=== PATIENT | male | born 1960 | race Caucasian/White ===

== ENCOUNTER → 2023-06-01 06:33 | Day surgery (SDC) | payer OTHER, SELFPAY | LOC: GI 06:33 | PROVIDERS: ATTENDING PHYSICIAN Internal Medicine | DX: Z12.11 Encounter for screening for malignant neoplasm of colon (principal); K64.8 Other hemorrhoids; K57.30 Diverticulosis of large intestine without perforation or abscess without bleeding | CPT/HCPCS: G0121 ==

== ENCOUNTER 2024-03-14 22:31 | Inpatient (IN) | payer OTHER, SELFPAY ==
[2024-03-14] VITALS (14 sets, daily range): BP systolic 98–142; BP diastolic 71–96; BMI 22.4
[2024-03-14 17:01] LABS: % Basophils 0.5 % (0-2); % Eosinophils 0.5 % (0-6); % Immature Granulocytes 0.5 % (0-0.5); % Monocytes 6.9 % (1.7-9.3); % Neutrophils 84.6 % (42.2-75.2); Absolute Basophils 0.1 10^3/uL (0-0.2); Absolute Eosinophils 0.1 10^3/uL (0-0.7); Absolute Immature Granulocytes 0.1 10^3/uL (0-0.05); Absolute Lymphocytes 0.9 10^3/uL (1.2-3.4); Absolute Monocytes 0.9 10^3/uL (0.1-0.6); Absolute Neutrophils 10.9 10^3/uL (1.4-6.5); Hematocrit 40.2 % (39.0-52.0); Hemoglobin 13.8 g/dL (13.0-18.0); Mean Corp Hgb Conc. 34.3 g/dL (33.0-37.0); Mean Corpuscular Hgb 31.4 pg (27.0-31.0); Mean Corpuscular Volume 91.6 fL (80.0-94.0); Mean Platelet Volume 9.8 fL (7.4-10.4); Nucleated Red Blood Cells % 0 % (-); Platelet Count 277 10^3/uL (130-400); Red Blood Cell Count 4.39 10^6/uL (4.70-6.10); Red Cell Dist. Width 13.1 % (11.5-14.5); White Blood Cell Count 12.9 10^3/uL (4.8-10.8)
[2024-03-14 17:16] LABS: ALT (SGPT) 38 U/L (0-50); AST (SGOT) 58 U/L (17-59); Albumin 4.5 g/dl (3.5-5.0); Alkaline Phosphatase 86 U/L (38-126); Blood Urea Nitrogen 12 mg/dl (9-20); Calcium 9.5 mg/dl (8.4-10.2); Carbon Dioxide 29 mmol/L (22-30); Chloride 93 mmol/L (98-107); Glucose 138 mg/dl (70-99); Potassium 4.5 mmol/L (3.5-5.1); Sodium 132 mmol/L (135-145); Total Bilirubin 0.7 mg/dl (0.2-1.3); Total Protein 7.1 g/dl (6.3-8.2); eGFR > 60.00
[2024-03-14 17:28] LABS: Troponin I < 0.012 ng/ml
--- NOTE | 2024-03-14 18:42 | ED.GENMED ---
History of Present Illness
<GARCIA Mai - Last Filed: 03/14/24 20:53>
General
Chief Complaint: Chest Pain
Source: patient
Exam Limitations: none
Time Seen by Provider: 03/14/24 18:28
History of Present Illness
History of Present Illness:
This is a 63 year old male that comes in with c/o chest tightness. States that he was scraping snow as he used his skin carver last night. States that he started with this tightness in his chest and his shoulders hurt. States that it was a severe
pain. States that with Deep breathing he really has pain. States that he had a viral infection in February and he was given a Z-pack. States that he has tightness in his chest like he had then. States that he got better for a little bit then the
tightness started again. States that right now he feels like everything hurts. States that he was a little nauseated, pain with Deep breathing and Lightheaded. Denies any fever, chills, abd pain, vomiting, diarrhea, headache, urinary burning.
Past History
<GARCIA Mai - Last Filed: 03/14/24 20:53>
Past History
ED Past Medical History: Negative Asthma, HTN, Hypercholesterolemia or NIDDM
ED Past Surgical History: Appendectomy and Orthopedic (Right rotator cuff)
Social History
Tobacco: Former smoker
Alcohol: Daily (Beer 4-6 )
Personal:
Living: with family
Review of Systems
<GARCIA Mai - Last Filed: 03/14/24 20:53>
Review of Systems
All Other Systems: ROS reviewed and negative except as documented in HPI and ROS
Constitutional: Reports no symptoms; Denies fever or chills
EENT: Reports no symptoms
Respiratory: Reports trouble breathing (pain with deep breathing); Denies cough
Cardiac: Reports chest pain
ABD/GI: Reports nausea; Denies abdominal pain, vomiting or diarrhea
: Reports no symptoms; Denies dysuria, frequency or urgency
Musculoskeletal: Reports other (Bilateral shoulder pain and pain all over)
Skin: Reports no symptoms
Neurological: Reports other (Lightheaded); Denies dizzy or headache
Psychiatric: Reports no symptoms
Phy Exam
<GARCIA Mai - Last Filed: 03/14/24 20:53>
General Physical Exam
General Presentation: no apparent distress
General age: appears stated age
General Skin: warm and dry
General Habitus: normal
General Mental: alert
General Hydration: appears well hydrated
ENT Exam
ENT Exam: TM's normal, pharynx normal and neck supple
Eye Exam
Eye Exam: EOMI
Cardiovascular Exam
Cardiovascular Exam: regular rate/rhythm, no edema, no murmur and normal peripheral pulses
Pulmonary Exam
Pulmonary Exam: lungs clear, no respiratory distress, no rales, chest non tender, no crackles, no rhonchi, no wheezing and no cough
Gastrointestinal Exam
Gastrointestinal Exam: normal bowel sounds, non tender, soft, no organomegaly, no pulsatile mass and non distended
Musculoskeletal Exam
Musculoskeletal Exam: full ROM and no edema
Skin Exam
Skin Exam: normal color, warm/dry, no rash and no petechia
Psychiatric Exam
Psychiatric Exam: normal mood/affect
Scores
<GARCIA Mai - Last Filed: 03/14/24 20:53>
Heart Score for Chest Pain Patients
STEMI patient?: No
History: Moderately Suspicious
ECG: Normal
Age: >45 - <65 years
Risk Factors: No Risk Factors
Troponin: </= Normal Limit
Heart Score for Chest Pain Patients: 2
Heart Score Risk: 2.5% MACE over next 6 weeks
Course
<Francisca Darling, GARCIA - Last Filed: 03/14/24 20:53>
Orders/Labs/Results
Orders:
Orders
03/14/24 16:32
EKG [Electrocardiogram (*1)] Urgent
Reason for Study: Chest Pain
03/14/24 16:33
EKG- Treatment ONCE
03/14/24 16:43
CMP [Comprehensive Metabolic Panel] Urgent
Complete Blood Count/With Diff Urgent
Troponin I Urgent
03/14/24 18:38
CR Chest - 2 Views Urgent
Comment:
Reason For Exam: Pain with deep breathing, Chest pain
03/14/24 18:39
Electrocardiogram (*1) Urgent
Reason for Study: Chest Pain
Other Reason for Exam: Repeat with Troponin
EKG- Treatment ONCE
Aspirin Chewable [Low Strength Aspirin] 324 mg PO NOW STA
03/14/24 18:45
COVID-19 Antigen Urgent
Source: Nasal Swab
D-Dimer Urgent
03/14/24 19:20
CT Chest PE Study Urgent
Comment:
Reason For Exam: sob, pleuritic cp
03/14/24 19:21
Ketorolac [Toradol] 15 mg IV NOW STA
03/14/24 19:50
Troponin I Urgent
Abnormal Lab Results
03/14/24 03/14/24
16:43 18:45
WBC 12.9 H 10^3/uL
(4.8-10.8)
RBC 4.39 L 10^6/uL
(4.70-6.10)
MCH 31.4 H pg
(27.0-31.0)
Abs Immat Gran (auto) 0.1 H 10^3/uL
(0-0.05)
Absolute Neuts (auto) 10.9 H 10^3/uL
(1.4-6.5)
Absolute Lymphs (auto) 0.9 L 10^3/uL
(1.2-3.4)
Absolute Monos (auto) 0.9 H 10^3/uL
(0.1-0.6)
Neutrophils % 84.6 H %
(42.2-75.2)
Lymphocytes % 7.0 L %
(20.5-51.1)
D-Dimer 0.62 H ug/mlFEU
(0.00-0.50)
Sodium 132 L mmol/L
(135-145)
Chloride 93 L mmol/L
(98-107)
Glucose 138 H mg/dl
(70-99)
03/14/24 16:43
03/14/24 16:43
Leukocytosis, hyponatremia, Hypochloremia. Hyperglycemia. Troponin <0.012
D-dimer 0.62, Negative for COVID. Second Troponin <0.012
Vital Signs
Initial and Last Documented VS:
Initial Vital Signs
Temp Pulse Resp BP Pulse Ox
97.7 F 76 18 117/72 99
03/14/24 16:38 03/14/24 16:38 03/14/24 16:38 03/14/24 16:38 03/14/24 16:38
Last Documented Vital Signs
Temp Pulse Resp BP Pulse Ox
97.6 F 77 21 124/72 98
03/14/24 18:17 03/14/24 18:17 03/14/24 18:17 03/14/24 18:17 03/14/24 18:17
<Edward Becker MD - Last Filed: 03/14/24 20:44>
Orders/Labs/Results
Orders:
Orders
03/14/24 16:32
EKG [Electrocardiogram (*1)] Urgent
Reason for Study: Chest Pain
03/14/24 16:33
EKG- Treatment ONCE
03/14/24 16:43
CMP [Comprehensive Metabolic Panel] Urgent
Complete Blood Count/With Diff Urgent
Troponin I Urgent
03/14/24 18:38
CR Chest - 2 Views Urgent
Comment:
Reason For Exam: Pain with deep breathing, Chest pain
03/14/24 18:39
Electrocardiogram (*1) Urgent
Reason for Study: Chest Pain
Other Reason for Exam: Repeat with Troponin
EKG- Treatment ONCE
Aspirin Chewable [Low Strength Aspirin] 324 mg PO NOW STA
03/14/24 18:45
COVID-19 Antigen Urgent
Source: Nasal Swab
D-Dimer Urgent
03/14/24 19:20
CT Chest PE Study Urgent
Comment:
Reason For Exam: sob, pleuritic cp
03/14/24 19:21
Ketorolac [Toradol] 15 mg IV NOW STA
03/14/24 19:50
Troponin I Urgent
Abnormal Lab Results
03/14/24 03/14/24
16:43 18:45
WBC 12.9 H 10^3/uL
(4.8-10.8)
RBC 4.39 L 10^6/uL
(4.70-6.10)
MCH 31.4 H pg
(27.0-31.0)
Abs Immat Gran (auto) 0.1 H 10^3/uL
(0-0.05)
Absolute Neuts (auto) 10.9 H 10^3/uL
(1.4-6.5)
Absolute Lymphs (auto) 0.9 L 10^3/uL
(1.2-3.4)
Absolute Monos (auto) 0.9 H 10^3/uL
(0.1-0.6)
Neutrophils % 84.6 H %
(42.2-75.2)
Lymphocytes % 7.0 L %
(20.5-51.1)
D-Dimer 0.62 H ug/mlFEU
(0.00-0.50)
Sodium 132 L mmol/L
(135-145)
Chloride 93 L mmol/L
(98-107)
Glucose 138 H mg/dl
(70-99)
03/14/24 16:43
03/14/24 16:43
Vital Signs
Initial and Last Documented VS:
Initial Vital Signs
Temp Pulse Resp BP Pulse Ox
97.7 F 76 18 117/72 99
03/14/24 16:38 03/14/24 16:38 03/14/24 16:38 03/14/24 16:38 03/14/24 16:38
Last Documented Vital Signs
Temp Pulse Resp BP Pulse Ox
97.6 F 77 21 124/72 98
03/14/24 18:17 03/14/24 18:17 03/14/24 18:17 03/14/24 18:17 03/14/24 18:17
<GARCIA Mai - Last Filed: 03/14/24 20:53>
MDM/Problems Addressed
Differential Diagnosis Includes:
PE, Coronary syndrome, Musculoskeletal pain
MDM/Problems Addressed:
This is a 63 year old male that comes in with c/o chest pain and pain with deep breathing. States that in February he had a viral illness and was place on a Z-pack. States that he has tightness in his chest then. States that he got better and the the
tightness started to come back. States that today he was scraping snow and he started with chest tightness and pain in the shoulder. States that when he takes a deep breath he has pain.
Will check labs, Chest x-ray, D-dimer and get Second Troponin
Repeat ECG: rate 80, NSR, Left axis, Normal QRS, Negativ for ischemia.
Back into see patient. Explained that his CT is negative for PE but there is a small pericardial effusion. Patient also had an arrhythmia that was note on the monitor that looked like Atrial Vs SVT. Will admit patient. Hospitalist notified.
Chronic conditions affecting care:
NA
Acute Exacerbation and/or Progression of Chronic Illness:
NA
<GARCIA Mai - Last Filed: 03/14/24 20:53>
*Radiology
Radiology exam reviewed: radiology read reviewed (CT chest-Small pericardial effusion. Mild interstitial thickening and ground-glass opacity in the lower lobes in a nearly symmetric distribution. Diagnostic possibilities are (1) a combination of
dependent subsegmental atelectasis and scarring or (2) Mild interstitial and alveolar pulmonary edema. ) and all reviewed NAD by ED Provider (CT cont- MIld splenomegaly. Chest-MIld bilateral lynda hyperinflation suggesting chronic obstructive
pulmonary disease. (COPD). Mild scarring and subsegmental atelectasis in the left lower lobe. )
*Pulse Oximetry
Patient hypoxic: no
*EKG
Interpreted by ED Provider?: Yes
Heart Rate: 73
Rate: normal
Rhythm: sinus, PAC's and PVC's
[place]: left axis deviation
QRS Pattern: normal QRS
Ischemia: no ischemia
*Vinyl Dipper Interpretation
Rate: normal
Heart Rate: 83
Rhythm: sinus and PVC's
*Critical Care Note
Total Time (30-74mins, 75-104mins- exclusive of procedures): Not Applicable
ED Attending Note
<GARCIA Mai - Last Filed: 03/14/24 20:53>
-
Portions of this chart may have been created with voice recognition software.� Occasional wrong word or��sound alike� substitutions may have occurred due to the inherent limitations of voice recognition software.
<Edward Becker MD - Last Filed: 03/14/24 20:44>
ED Attending Note
Patient seen and examined by attending physician: Yes
ED Attending Note:
I have seen and evaluated the patient with a [id number] encounter. I have spoken to the advance practicer provider and involved in the medical history, the physical exam, medical decision making.
Evaluation and management service: agree unless noted differently below.
Results interpretation: agree unless noted differently below.
Focused HPI: 63-year-old male with no reported chronic medical issues presents to the ER for evaluation of chest pain. Patient reports symptoms started a little over an hour prior to arrival�he reports that he went outside to shovel the driveway
and started to have some pain. He describes a sharp/burning substernal pain that is constant but much worse with deep inspiration. He says he has some mild associated shortness of breath. He denies any nausea, vomiting, diaphoresis. He denies
any other complaints. He does note that he is just getting over a viral GI bug for which she was treated with azithromycin 2 weeks ago. He denies any personal or family history of cardiac issues. He did have recent travel to [place] he says it
was a 3 and half hour flight. Has not any swelling or pain in the legs.
Physical exam: Well-appearing not in distress. Vitals normal. Regular rate and rhythm on cardiac auscultation, no rubs gallops or murmurs appreciated. Lungs sound clear to auscultation bilaterally. No edema noted in the extremities. Extremities
are warm and well-perfused. Abdomen nontender. No chest wall tenderness
Medical Decision Makin-year-old male presents for evaluation of pleuritic chest pain started little over an hour prior to arrival. Vitals and exam as above. Will send off labs including a CBC and a CMP, troponins, D-dimer. Swab for COVID and
flu. Check chest x-ray. EKG shows sinus rhythm no STEMI. Reassess after the above.
Labs reviewed: CBC shows slight leukocytosis. CMP no clinically significant abnormalities. D-dimer slightly elevated�will send for a CT chest. Troponin undetectable. Chest x-ray no acute disease.
Repeat troponin undetectable. CT chest shows small pericardial effusion, groundglass opacities nearly symmetric distribution in the lower lobes could be subsegmental atelectasis versus mild interstitial pulmonary edema. Question whether symptoms
could be from pericarditis with recent viral illness and now pleuritic pain and pericardial effusion. He did have a short run of SVT/A-fib here and with continued chest pain despite NSAIDs will admit for continued evaluation and treatment.
Discharge Plan
Departure
Patient Disposition: Admit
Date of Disposition: 03/14/24
Time of Disposition: 20:50
Admit to: Telemetry
Presentation/result/management discussed w/ accepting MD/DO: Hospitalist
Patient with high blood pressure during this ER visit?: No
Condition: Good
Covid-19: Not Applicable
Discharge Problem:
Chest pain, Acute pericardial effusion, Atrial fib Vs SVT
Referrals:
UNKNOWN - PT DOES,NOT KNOW [Unknown Provider] -
Interventions
Interventions:
*Risk Screen - Suicide Last Done: 03/14/24 16:38
*General Assessment Last Done: 03/14/24 16:38
*Neglect/Abuse Screening Last Done: 03/14/24 18:17
ED- Fall Risk Assessment Last Done: 03/14/24 18:17
*ED COVID-19 Vaccine History Last Done: 03/14/24 16:38
ED- Cardiac Assessment Last Done: 03/14/24 18:17
Discharge Date and Time
Print Language: [place]
[2024-03-14] MEDS: LOW STRENGTH ASPIRIN 324 MG PO (18:46)
[2024-03-14 19:10] LABS: COVID-19 Antigen Negative (Negative)
[2024-03-14 19:16] LABS: D-Dimer 0.62 ug/mlFEU (0.00-0.50)
[2024-03-14] MEDS: TORADOL 15 MG IV (19:46)
[2024-03-14 20:25] LABS: Troponin I < 0.012 ng/ml
--- NOTE | 2024-03-14 21:02 | HPS.HSE ---
Family Physician
-
Family Physician: Thompson Mendez
Chief Complaint
-
chest tightness
History of Present Illness
Patient is a 63-year-old male with no significant past medical history who presented to [facility] ED for evaluation of chest tightness. Patient reports consistent chest tightness since the beginning of the month. He states he saw his primary
provider on Feb 25 who stated he had a virus and prescribed him a z-pack and albuterol inhaler. He states he felt better at first and then the chest tightness returned after he finished the z-pack, he states he never used albuterol inhaler. He
reports that last night he utilized snowblower to clear driveway without worsening symptoms. He reported that today he went out to scrape ice from cars and driveway and when he was completed he had chest tightness that radiated to his arms. He
reports similar tightness in chest with deep breaths. Patient denies any palpitations, dizziness, shortness of breath, nausea, vomiting, constipation, diarrhea or urinary symptoms.
Medical History
Past Medical History
Past Medical History: Reports None
Past Surgical History: Reports Other
Additional Past Surgical History:
appendectomy
right rotator cuff
Social History
Tobacco: Non-smoker
Alcohol: Daily (4-6 beers)
Drug: None
Personal:
Living: With Family
Employment: Employed
Family History
Family History: Not pertinent
Allergies / Home Medications
Allergies reflects when Allergies were last updated in [email or web address].
Home Medications with original date entered in [email or web address]
Allergy/Medication List:
Allergies
Allergy/AdvReac Type Severity Reaction Status Date / Time
Penicillins Allergy Unknown Verified 03/14/24 16:40
Home Medications
albuterol sulfate 90 mcg/actuation aerosol inhaler 2 puff inhalation R Q6HPRN PRN sob 03/14/24
biotin 1 mg tablet 1 mg PO DAILY 03/14/24
ibuprofen 200 mg tablet 600 mg PO Q6HPRN PRN mild pain 03/14/24
Review of Systems
-
History Source: Patient
Constitutional: Reports No Symptoms
EENT: Reports No Symptoms
Respiratory: Reports No Symptoms
Cardiac: Reports Chest Pain (described as tightness that radiated to shoulders today )
Abdomen/GI: Reports No Symptoms
: Reports No Symptoms
Musculoskeletal: Reports No Symptoms
Skin: Reports No Symptoms
Neurological: Reports No Symptoms
Endocrine: Reports No Symptoms
Hematologic/Lymphatic: Reports No Symptoms
Psych: Reports No Symptoms
Physical Exam
Vital Signs
Vital Signs
Temp Pulse Resp BP Pulse Ox
97.6 F 77 21 124/72 98
03/14/24 18:17 03/14/24 18:17 03/14/24 18:17 03/14/24 18:17 03/14/24 18:17
Physical Exam
General: Well Developed, Well Nourished, No Apparent Distress, Comfortable and Conversant
HEENT: NormoCephalic, Moist mucous membranes, Atraumatic, [place] Conjunctivae, Nose Appears Normal and Ears Appear Normal
Respiratory: Clear and Non Labored Respirations
Cardiac: S1/S2 and Regular Rhythm; No Murmur, Rub or Gallop
GI: Soft, Non Tender, Non Distended and Normal Bowel Sounds; No Organomegaly
Rectal: Deferred by Provider
Genito-urinary: Deferred by me
Musculoskeletal: No Clubbing, No Cyanosis and No Edema
Skin: Warm and IV/Catheter Site; No Rash
Neuro: Awake, Alert, AO x 3 and Nonfocal/grossly intact
Psych: Calm and Intact Judgment/Insight
Laboratory Results
-
03/14/24 16:43
03/14/24 16:43
Laboratory Results
Total Bilirubin 0.7 mg/dl (0.2-1.3) 03/14/24 16:43
AST 58 U/L (17-59) 03/14/24 16:43
ALT 38 U/L (0-50) 03/14/24 16:43
Alkaline Phosphatase 86 U/L (38-126) 03/14/24 16:43
Troponin I < 0.012 ng/ml 03/14/24 19:50
Data Reviewed
-
Diagnostic Radiology: Report Reviewed by me (CXR: 1. Mild bilateral lung hyperinflation suggesting chronic obstructive pulmonary disease (COPD). 2. Mild scarring and subsegmental atelectasis in the left lower lobe. )
CT Scan: Report Reviewed by me (Chest: 1. SMALL PERICARDIAL EFFUSION. 2. Mild interstitial thickening and ground-glass opacity in the lower lobes in a nearly symmetric distribution. Diagnostic possibilities are (1) a combination of dependent
subsegmental atelectasis and scarring or (2) mild interstitial and alveolar pulmonary )
Lab Data: Labs Reviewed by me (Trop <0.012)
Impression/Plan
-
IMPRESSION/PLAN:
#Chest pain
EKG: NORMAL SINUS RHYTHM
LEFT AXIS DEVIATION
NONSPECIFIC ST ABNORMALITY
ABNORMAL ECG
CXR: 1. Mild bilateral lung hyperinflation suggesting chronic obstructive pulmonary disease (COPD).
2. Mild scarring and subsegmental atelectasis in the left lower lobe.
Chest CT: 1. SMALL PERICARDIAL EFFUSION.
2. Mild interstitial thickening and ground-glass opacity in the lower lobes in a nearly symmetric distribution. Diagnostic possibilities are (1) a combination of dependent subsegmental atelectasis and scarring or (2) mild
interstitial and
alveolar pulmonary edema.
3. Mild splenomegaly.
Trop <0.012, 0.012
- Admit to IVU
- Consult cardiology
- trend troponin
- ECHO in the morning
#new onset a-fib RVR
- heparin gtt
- diltiazem gtt
Code Status: Full Code
DVT Prophylaxis: Lovenox Sq
[2024-03-14] MEDS: CARDIZEM 20 MG IV (21:58)
[2024-03-14] MEDS: FLUSH (NSS) 1 FLUSH IV (22:00)
[2024-03-14] MEDS: CARDIZEM 125 IV (22:06)
--- NOTE | 2024-03-14 22:43 | W.PN.UPDATE ---
Update Note
Progress Note Update
Attending addendum
Patient seen independently
63-year-old man with no significant past medical history who presented to [facility] ED for evaluation of chest tightness. He has had Consistent chest tightness since the beginning of the month. PCP on Feb 25 who stated he had a virus and gave him a
z-pack and albuterol inhaler. He felt better at first but the chest tightness returned after he finished the z-pack, Last night he utilized snowblower to clear driveway without worsening symptoms. He reported that today after scraping ice from cars
and driveway he had chest tightness that radiated to his arms. He reports similar tightness in chest with deep breaths. Patient denies any palpitations, dizziness, shortness of breath, nausea, vomiting, constipation, diarrhea or urinary symptoms.
Pain is worse if he leans forward. CT in the ED showed:
1. SMALL PERICARDIAL EFFUSION.
2. Mild interstitial thickening and ground-glass opacity in the lower lobes in a nearly symmetric distribution. Diagnostic possibilities are (1) a combination of dependent subsegmental atelectasis and scarring or (2) mild interstitial and alveolar
pulmonary edema.
3. Mild splenomegaly.
During my exam he developed afib with a rate of 150-170. He was started on diltiazem gtt and heparin gtt.
Physical Exam
General: Well Developed, Well Nourished, No Apparent Distress, Comfortable and Conversant
HEENT: NormoCephalic, Moist mucous membranes, Atraumatic, [place] Conjunctivae, Nose Appears Normal and Ears Appear Normal
Respiratory: Clear and Non Labored Respirations
Cardiac: S1/S2 and Regular Rhythm; No Murmur, Rub or Gallop
GI: Soft, Non Tender, Non Distended and Normal Bowel Sounds; No Organomegaly
Psych: Calm and Intact Judgment/Insight
Impression/Plan
1. Chest pain, positional, probable viral pericarditis, now complicated by new afib.
Trop <0.012, 0.012
- Admit to IVU - on heparin gtt and dilt gtt
- Consult cardiology
- trend troponin
- ECHO in the morning
Code Status: Full Code
DVT Prophylaxis: heparin gtt
[2024-03-14] MEDS: HEPARIN 4000 UNITS IV (22:52)
[2024-03-14] MEDS: HEPARIN 25000 UNITS/250 ML IV (22:53)
[2024-03-15] VITALS (14 sets, daily range): BP systolic 112–126; BP diastolic 70–88; BMI 21.6
[2024-03-15 01:24] LABS: Troponin I < 0.012 ng/ml
[2024-03-15] MEDS: TYLENOL 650 MG PO ×2 (01:37→08:02)
--- NOTE | 2024-03-15 04:00 | PTCARENOTE ---
Pt received as admit from ED. Admission assessment completed and pt oriented to room. SR on tele since admission to unit with HR 60s-80s. Pt with complaints of 'chest tightness that gets worse with deep breath' which is unchanged since he has
gotten to the hospital. Cardizem gtt currently infusing at 5mg/hr and heparin gtt infusing at 1100units/hr. Plan of care discussed and pt verbalizes understanding. Can make needs known. Call rivera within reach.
[2024-03-15 05:07] LABS: Hematocrit 36.5 % (39.0-52.0); Hemoglobin 12.8 g/dL (13.0-18.0); Mean Corp Hgb Conc. 35.1 g/dL (33.0-37.0); Mean Corpuscular Hgb 31.4 pg (27.0-31.0); Mean Corpuscular Volume 89.7 fL (80.0-94.0); Mean Platelet Volume 10.2 fL (7.4-10.4); Platelet Count 203 10^3/uL (130-400); Red Blood Cell Count 4.07 10^6/uL (4.70-6.10); Red Cell Dist. Width 12.8 % (11.5-14.5); White Blood Cell Count 10.2 10^3/uL (4.8-10.8)
[2024-03-15 05:17] LABS: APTT 118.8 Sec (23.4-35.0)
[2024-03-15 05:30] LABS: ALT (SGPT) 29 U/L (0-50); AST (SGOT) 41 U/L (17-59); Albumin 3.9 g/dl (3.5-5.0); Alkaline Phosphatase 68 U/L (38-126); Blood Urea Nitrogen 12 mg/dl (9-20); Calcium 9.7 mg/dl (8.4-10.2); Carbon Dioxide 26 mmol/L (22-30); Chloride 93 mmol/L (98-107); Estimated Creatinine Clearance 118 ml/min; Glucose 111 mg/dl (70-99); HDL Cholesterol 86 mg/dl; LDL Cholesterol, Calculated 35 mg/dl; Potassium 4.6 mmol/L (3.5-5.1); Sodium 128 mmol/L (135-145); Total Bilirubin 2.1 mg/dl (0.2-1.3); Total Cholesterol 131 mg/dl (50-199); Total Protein 6.4 g/dl (6.3-8.2); Triglyceride 52 mg/dl (10-149); Very Low Density Lipoprotein 10 mg/dl (0-30); eGFR > 60.00
--- NOTE | 2024-03-15 07:37 | CON.CAR ---
Addendum entered and electronically signed by Troy Golden MD 03/15/24 15:37:
I saw and examined the patient on morning rounds.
The Emulsion Operator's note was reviewed and I agree with the note.
Comment: Briefly, 63-year-old man presenting for evaluation of chest discomfort.
Pain seems to be somewhat atypical by his description. Has not been clearly exertional. Seems worse with deep inspiration.
Troponin was undetectable x 3
ECG was not overtly ischemic
Small pericardial effusion seen on CT chest and thought to be trivial on transthoracic echocardiogram.
Overall seems most consistent with pericarditis
Recommend ibuprofen 800 mg 3 times daily x 2 weeks
Colchicine 0.6 mg daily x 3 months
We will arrange for outpatient cardiology follow-up and can discuss ischemic evaluation at that time
Of note, patient was also identified as having a brief episode of atrial fibrillation on telemetry here and spontaneously converted back to sinus rhythm
Patient reports that he was asymptomatic during this episode
Start low-dose beta-jim for rate control
Chads 2 VASc score of 0, reviewed risk/benefit of oral anticoagulation with patient and recommended we hold off on anticoagulation at this time
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
Stable for discharge from my perspective
We will arrange outpatient cardiology follow-up
Original Note:
Consultation
Consultation Request
Date/Time Consultation Performed: 03/15/24
Requesting Provider: Dr. Morillo
Performing Provider: Parisa Oneill PA-C for Dr. Golden
Reason for Consultation: CP, afib
Medical History
-
Chief Complaint: CP
History of Present Illness:
Patient is a 63 yo M without significant PMH who presented to with chest pain. He reports in February he had a upper respiratory infection. In the setting of this he developed chest tightness. He was prescribed a Z-Favio, however upon finishing
it states that his symptoms did not significantly improve. He reports since then he has had intermittent tightness across his chest, as well as pleuritic pain worse with taking a deep breath in. He reports pain across his shoulders in addition.
Denies positional component to pain to his knowledge. He denies recent fevers or chills as well as cough. 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 He then reports last night he was cleaning off the cars which he felt was
minimal exertion. Upon coming in from doing so, felt significant worsening of symptoms and came to ER for evaluation. While in ER was noted to be in atrial fibrillation which is new diagnosis for patient. He was started on IV heparin and IV
Cardizem and spontaneously converted to sinus rhythm at approximately 12:30 AM. Currently without chest discomfort. Troponins negative x 2. D-dimer was mildly elevated at 0.[address] negative for PE however did show small
pericardial effusion. States he drinks 4-6 beers a day
PMH:
Daily alcohol use
History of right rotator cuff repair in 2020
History of appendectomy at age 5
Past Medical History
Past Medical History: Other (in HPI)
Social History
Tobacco: Non-Smoker
Alcohol: Daily (4-6 beers)
Personal:
Living: With Family
Employment: Employed
Family History
Family History: CAD (in father)
Allergies / Home Medications
Allergy/AdvReac Type Severity Reaction Status Date / Time
Penicillins Allergy Unknown Verified 03/14/24 16:40
�Medication �Instructions �Recorded �Confirmed �Type
albuterol sulfate 90 mcg/actuation 2 puff inhalation R Q6HPRN PRN sob 03/14/24 03/14/24 History
aerosol inhaler
biotin 1 mg tablet 1 mg PO DAILY 03/14/24 03/14/24 History
ibuprofen 200 mg tablet 600 mg PO Q6HPRN PRN mild pain 03/14/24 03/14/24 History
Review of Systems
-
History Source: Patient
All other systems: Negative unless noted
Physical Exam
Vital Signs
Temp Pulse Resp BP Pulse Ox
98.2 F 63 18 121/80 98
03/15/24 04:31 03/15/24 04:15 03/15/24 04:31 03/15/24 04:15 03/15/24 04:31
Lab Results
03/15/24 04:39
03/15/24 04:39
Troponin I < 0.012 ng/ml 03/15/24 00:43
Physical Exam
General: No Apparent Distress and Comfortable
HEENT: Normocephalic, Anicteric and Moist Mucous Membranes
Respiratory: Clear and Non Labored Respirations
Cardiac: S1/S2 and Regular Rhythm
GI: Soft, Non Tender, Non Distended and Normal Bowel Sounds
Musculoskeletal: No Clubbing, No Cyanosis and No Edema
Skin: Warm and Dry
Neuro: AO x 3
Impression / Plan
-
Primary Outsole Scheduler: none prior to admission
Assessment:
Presentation with CP
Small pericardial effusion by chest CT, concern for acute pericarditis
PAF, new diagnosis, spontaneously converted to SR
Negative trops x2
PVCs
Elevated ddimer
Hyponatremia
Recent URI
COPD by CXR
Daily alcohol use
History of right rotator cuff repair in 2020
History of appendectomy at age 5
FH of CAD (angina in father)
ECHO 03/15/24: pending
Plan:
-Patient presented with chest discomfort with pleuritic component in setting of recent URI. Troponins negative x 2. Chest CT negative for PE however did show small pericardial effusion. EKG also with mild diffuse ST elevation by my review.
Concern for acute pericarditis.
-Consider initiation of treatment for pericarditis with NSAIDs and colchicine.
-Echo pending
-Also had episode of paroxysmal atrial fibrillation, new diagnosis. Patient was started on IV Cardizem and IV heparin and spontaneously converted to sinus rhythm around 12:30 AM. He remains in sinus rhythm at this time without recurrence.
-Will stop IV Cardizem and place on oral Cardizem
-[id number] score of 0. in setting of possible pericardial effusion and treatment for pericarditis with NSAIDS, would weigh need for OAC. currently on IV heparin.
-Check TSH
-Discussed EtOH cessation
-Workup of hyponatremia per primary service, suspected SIADH.
-Will arrange outpatient cardiac follow-up. Would consider for outpatient cardiac monitoring to establish burden/duration of anticoagulation, as well as outpatient stress testing once recovered
Data Reviewed
-
EKG: Tracing Personally Visualized and interpreted
Radiology: Report Reviewed by me
CT Scan: Report Reviewed by me
Labs: Labs Reviewed by me
Old Records: Reviewed
--- NOTE | 2024-03-15 07:50 | PTCARENOTE ---
Assumed care of pt from prev nsg shift; Pt AAOx3 w/no c/o SOB. Pt does report 3-4/10 upper chest pain w/inspiration. PRN PO Tylenol administered as ordered. Pt w/VS stable w/HR in the 60's & BP 126/79 this AM. Pt is 0 on MSAS. Pt w/IV Heparin & IV
Cardizem infusing as ordered through patent IV lines. Pt is SR on telemetry monitoring. Pt w/call rivera within reach & plan of care ongoing.
--- NOTE | 2024-03-15 07:57 | W.PN.HOSP.TC ---
Today's Communication/Plan
-
TTE
follow up further cardiology recommendations
Assessment / Plan
Assessment / Plan
63-year-old man with no significant past medical history who presented to [facility] ED for evaluation of chest tightness. He was recently prescribed Azithromycin by PCP with temporary relief of symptoms. Last night while clearing off cars and
driveway he developed chest tightness worse with deep breaths.
EKG: NSR with nonspecific t-wave abnormalities
CXR: 1. Mild bilateral lung hyperinflation suggesting chronic obstructive pulmonary disease (COPD).
2. Mild scarring and subsegmental atelectasis in the left lower lobe.
Chest CT: 1. SMALL PERICARDIAL EFFUSION.
2. Mild interstitial thickening and ground-glass opacity in the lower lobes in a nearly symmetric distribution. Diagnostic possibilities are (1) a combination of dependent subsegmental atelectasis and scarring or (2) mild
interstitial and
alveolar pulmonary edema.
3. Mild splenomegaly.
Pleuritic chest pain
Small Pericardial Effusion
Concern for viral pericarditis
- admitted to IVU
- Troponin negative x 3
- TTE ordered
- will discuss starting colchicine/motrin with cardiology
New onset atrial fibrillation with RVR in setting of above; has been in sinus overnight here and currently in sinus - brief SVT seen on onitor
- heparin gtt
- diltiazem gtt - stop as now in sinus
Hyponatremia
-suspect SIADH
-fluid restrict for now
-follow up urine studies
Alcohol Use
-started on MSAS
-check electrolytes
GI PPx - start Protonix with drinking hx
Code Status: Full Code
DVT Prophylaxis: heparin gtt
51 minutes spent on patient care
Anticipated Discharge: 24 - 48 hours
Subjective/Interval History
-
Date of Service: March 15, 2024
Objective Data
-
Labs:
Laboratory Results
03/14/24 03/15/24 03/15/24
22:26 04:39 11:30
WBC 10.2
Hgb 12.8 L
Hct 36.5 L
Plt Count 203 D
APTT 38.0 H 118.8 H Pending
Sodium 128 L
Potassium 4.6
Chloride 93 L
Carbon Dioxide 26
BUN 12
Creatinine 0.7
Glucose 111 H
Calcium 9.7
Total Bilirubin 2.1 H D
AST 41
ALT 29
Alkaline Phosphatase 68
Vital Signs:
Vital Signs
Temp Pulse Resp BP Pulse Ox
98.2 F 63 18 121/80 98
03/15/24 04:31 03/15/24 04:15 03/15/24 04:31 03/15/24 04:15 03/15/24 04:31
I&O
03/14/24 03/15/24 03/16/24
06:59 06:59 06:59
Output Total 250 / 250
Balance -250 / -250
[2024-03-15] MEDS: FOLVITE 1 MG PO (08:02)
[2024-03-15] MEDS: THIAMINE INJECTION 200 MG IV ×2 (08:02→20:19)
[2024-03-15] MEDS: FLUSH (NSS) 2 FLUSH IV (08:03)
[2024-03-15 09:04] LABS: Glycohemoglobin (HgbA1c) 5.3 % (4.0-5.6)
[2024-03-15] MEDS: PROTONIX 40 MG PO (10:07)
[2024-03-15] MEDS: TOPROL XL 25 MG PO (10:07)
[2024-03-15 10:22] LABS: Magnesium 1.6 mg/dl (1.6-2.3); Phosphorus 4.1 mg/dl (2.5-4.5)
[2024-03-15 10:47] LABS: NT-proBNP 417 pg/ml
[2024-03-15] MEDS: COLCHICINE 0.6 MG PO (10:59)
[2024-03-15 11:11] LABS: Erythrocyte Sed Rate 12 mm/hour (0-20)
[2024-03-15 11:12] LABS: Urine Sodium 14 mmol/L (30-90)
[2024-03-15 11:26] LABS: Osmolality Urine 406 mOsm/kg (300-900)
--- NOTE | 2024-03-15 14:42 | W.DS.TRANS ---
DC Summary - [facility]
-
Discharge Instructions:
Discharge Diagnosis/Procedures Acute Pericarditis
Diet Restrict fluids to 48 oz
Activity As tolerated
Driving Restrictions As prior to admission
Bathing Restrictions None
Blood Work BMP in 2-3 days to monitor sodium levels
Instructions:
Stand-Alone Forms:
Changes to Home Medications: Yes
Discharge Medications:
DC Medications w/original date entered in [employer]
albuterol sulfate 90 mcg/actuation aerosol inhaler 2 puff inhalation R Q6HPRN PRN sob 03/14/24
biotin 1 mg tablet 1 mg PO DAILY Supplement 03/14/24
colchicine 0.6 mg tablet 0.6 mg PO DAILY #90 tabs 03/15/24
folic acid 1 mg tablet 1 mg PO DAILY #30 tabs 03/15/24
ibuprofen 800 mg tablet 800 mg PO TID #42 tabs 03/15/24
metoprolol succinate 25 mg tablet,extended release 24 hr 25 mg PO DAILY #30 tabs 03/15/24
pantoprazole 40 mg tablet,delayed release 40 mg PO DAILY #30 tabs 03/15/24
thiamine HCl (vitamin B1) 100 mg tablet 100 mg PO DAILY #30 tabs 03/15/24
Home Medication Changes
You are prescribed 3 months of colchicine 0.6mg daily
Take Motrin 800mg 3x/day x 2 weeks
Take Protonix to help protect your stomach while you are on Motrin
You are newly started on Metoprolol to help control heart rates if you revert back to afib
You are prescribed vitamins thiamine/folate
Pending Results: No
[2024-03-15 15:48] LABS: Sodium 127 mmol/L (135-145)
[2024-03-15] MEDS: NSS 1000 IV (16:26)
[2024-03-15] MEDS: FLUSH (NSS) 1 FLUSH IV (16:27)
[2024-03-15] MEDS: MOTRIN 800 MG PO ×2 (16:30→22:02)
--- NOTE | 2024-03-15 22:20 | PTCARENOTE ---
Pt remains in NSR with HR 60s-70s. Denies CP and SOB. NS currently infusing at 70ml/hr. Pt on MSAS per alcohol withdraw protocol, currently 0. Ambulating independently in room without difficulty. Plan of care discussed and pt verbalizes
understanding and hoping to be discharged tomorrow. Can make needs known. Call rivera within reach.
--- NOTE | 2024-03-16 02:08 | DOWNTIME ---
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 Downtime documentation of patient's care, including medication administrations, has been reconciled in the electronic record per guidelines. Refer to the
patient's paper chart under the miscellaneous tab to see printed paper medication records and downtime forms.
[2024-03-16 03:12] VITALS: BP 116/74
--- NOTE | 2024-03-16 03:33 | PTCARENOTE ---
Pt went into Afib in the 140s for a minute with a 4 beat run of VT. Pt asymptomatic during episode, resting in bed at the time. Pt spontaneously converted back to NSR with HR in the 60s. Labs drawn and sent. Pt with no complaints at this time.
Plan of care ongoing.
[2024-03-16 03:39] LABS: Hematocrit 35.4 % (39.0-52.0); Hemoglobin 12.4 g/dL (13.0-18.0); Mean Corpuscular Hgb 31.6 pg (27.0-31.0); Mean Corpuscular Volume 90.1 fL (80.0-94.0); Mean Platelet Volume 10.3 fL (7.4-10.4); Platelet Count 195 10^3/uL (130-400); Red Blood Cell Count 3.93 10^6/uL (4.70-6.10); Red Cell Dist. Width 13.1 % (11.5-14.5); White Blood Cell Count 7.2 10^3/uL (4.8-10.8)
[2024-03-16 04:03] LABS: Blood Urea Nitrogen 12 mg/dl (9-20); Calcium 8.8 mg/dl (8.4-10.2); Carbon Dioxide 24 mmol/L (22-30); Chloride 100 mmol/L (98-107); Estimated Creatinine Clearance 103 ml/min; Glucose 115 mg/dl (70-99); Potassium 4.3 mmol/L (3.5-5.1); Sodium 132 mmol/L (135-145); eGFR > 60.00
[2024-03-16] MEDS: NSS 1000 IV (06:28)
--- NOTE | 2024-03-16 07:30 | W.PN.HOSP.TC ---
Today's Communication/Plan
-
OK for DC
Assessment / Plan
Assessment / Plan
63-year-old man with no significant past medical history who presented to [facility] ED for evaluation of chest tightness. He was recently prescribed Azithromycin by PCP with temporary relief of symptoms. Last night while clearing off cars and
driveway he developed chest tightness worse with deep breaths.
EKG: NSR with nonspecific t-wave abnormalities
CXR: 1. Mild bilateral lung hyperinflation suggesting chronic obstructive pulmonary disease (COPD).
2. Mild scarring and subsegmental atelectasis in the left lower lobe.
Chest CT: 1. SMALL PERICARDIAL EFFUSION.
2. Mild interstitial thickening and ground-glass opacity in the lower lobes in a nearly symmetric distribution. Diagnostic possibilities are (1) a combination of dependent subsegmental atelectasis and scarring or (2) mild
interstitial and
alveolar pulmonary edema.
3. Mild splenomegaly.
Pleuritic chest pain
Small Pericardial Effusion
Concern for viral pericarditis
- admitted to IVU
- Troponin negative x 3
- TTE ordered
- continue motrin TID x 2 weeks; colchicine daily x 3 months
New onset atrial fibrillation with RVR in setting of above; has been in sinus overnight here and currently in sinus - brief SVT seen on onitor
-CHADS2-Vasc score = 0
-no need for AC
Hyponatremia
-urine sodium low
-Na improved with IVF - OK for DC
Alcohol Use
-started on MSAS
-check electrolytes
GI PPx - start Protonix with drinking hx
Code Status: Full Code
DVT Prophylaxis: heparin gtt
51 minutes spent on patient care
Anticipated Discharge: Today
Subjective/Interval History
-
Date of Service: March 16, 2024
feeling well
feels ready to go home
mild pleuritic chest pain
Objective Data
-
Labs:
Laboratory Results
03/16/24
03:11
WBC 7.2
Hgb 12.4 L
Hct 35.4 L
Plt Count 195
Sodium 132 L
Potassium 4.3
Chloride 100
Carbon Dioxide 24
BUN 12
Creatinine 0.8
Glucose 115 H
Calcium 8.8
Vital Signs:
Vital Signs
Temp Pulse Resp BP Pulse Ox
98.3 F 62 16 116/74 96
03/16/24 03:14 03/16/24 03:12 03/16/24 03:14 03/16/24 03:12 03/16/24 03:14
I&O
03/15/24 03/16/24 03/17/24
06:59 06:59 06:59
Intake Total 840 / 840
Output Total 250 / 250
Balance -250 / -250 840 / 840
Review of Systems
-
History Source: Patient
All other systems: Reviewed and negative
Physical Exam
-
General: No Apparent Distress
HEENT: PERRLA
Respiratory: Clear to Auscultation; Negative Wheezes
Cardiac: Regular Rhythm and S1/S2
GI: Soft and Nontender
Musculoskeletal: No Edema
Skin: Warm and Dry; Negative Rash
Neuro: AO x 3
Psych: Calm
Data Reviewed
-
Diagnostic Radiology: Report Reviewed by me
Labs: Labs Reviewed by me
[2024-03-16 07:52] VITALS: BP 129/79
[2024-03-16] MEDS: COLCHICINE 0.6 MG PO (07:53)
[2024-03-16] MEDS: TOPROL XL 25 MG PO (07:53)
[2024-03-16] MEDS: MOTRIN 800 MG PO (07:53)
[2024-03-16] MEDS: PROTONIX 40 MG PO (07:53)
[2024-03-16] MEDS: THIAMINE INJECTION IV (07:53)
[2024-03-16] MEDS: FOLVITE PO (07:53)
--- NOTE | 2024-03-16 09:38 | CM ---
CM following for DC planning needs.
CM had met with patient on 03/14 to complete initial assessment.
Pt. shared that he resides in a private, 2 story home w/ 1 [address] w/ spouse. Pt. is functionally indep. at baseline w/ ADLs, mobility.
DC plan is for home, no needs.
--- NOTE | 2024-03-16 10:03 | PTCARENOTE ---
Pt AOx3,no complaints of pain or discomfort. HR up to 140s, pt asymptomatic, Dr Cho aware. Plan for discharge today. VSS, SR on tele monitor. Call rivera within reach.
--- NOTE | 2024-03-16 15:03 | W.DCSUMMARY ---
Discharge Summary
Discharge Data
Date of Admission: 03/14/24
Date of Discharge: 03/16/24
-
Pending Results: No
Hospital Course
Discharging Physician : Dr. Roxy Cho
Disposition : Home
Primary care physician : Dr. Thompson Mendez
Principal Discharge diagnosis : Acute Pericarditis, Hyponatremia
Hospital Course :
Mr. Mark Mendez is a 63 yo man with no significant past medical history who presented to [facility] ED for evaluation of chest tightness. He was recently prescribed Azithromycin by PCP with temporary relief of symptoms. Last night while clearing
off cars and driveway he developed chest tightness worse with deep breaths.
Triage vitals stable. Labs with WBC 12.9, normal renal function. CXR with e/o COPD. Chest CT with small pericardial effusion. Patient was admitted to medicine with cardiology consulting. Troponin negative x 3. TTE obtained showing trace
effusion. He was started on Motrin 800mg PO TID and Colchicine 0.6mg PO QD for treatment of acute pericarditis.
Brief periods of afib seen on telemetry. [id number] score 0 and decision made to hold off on AC. Plan is for outpatient monitor to assess burden.
He is prescribed Protonix for GI protection and educated on importance of alcohol cessation.
Patient was hyponatremic HD 1 2/2 dehydration, Na improved with IVF to 132 prior to discharge.
Time spent on discharge was 35 minutes.
Important imaging findings :
CXR: 1. Mild bilateral lung hyperinflation suggesting chronic obstructive pulmonary disease (COPD).
2. Mild scarring and subsegmental atelectasis in the left lower lobe.
Chest CT: 1. SMALL PERICARDIAL EFFUSION.
2. Mild interstitial thickening and ground-glass opacity in the lower lobes in a nearly symmetric distribution. Diagnostic possibilities are (1) a combination of dependent subsegmental atelectasis and scarring or (2) mild
interstitial and
alveolar pulmonary edema.
3. Mild splenomegaly.
TTE
CONCLUSIONS
Top normal left ventricular size, wall thickness and systolic function. No
regional wall motion abnormalities are seen. LV ejection fraction is 55-60% by
Lewis's method of discs. Normal diastolic function.
Mildly dilated aortic root. Sinus of Valsalva measures 3.8 cm. The aortic arch
is normal in caliber.
Indications:
CHEST PAIN
Procedure findings :
Discharge Plan
-
Patient Disposition: Home (Routine Discharge)
Discharge Diagnosis/Procedures: Acute Pericarditis
Diet: Restrict fluids to 48 oz
Activity: As tolerated
Driving Restrictions: As prior to admission
Bathing Restrictions: None
Activity Restrictions/Additional Instructions:
Please continue motrin 800mg three times daily for 2 weeks. Please continue colchicine 0.6mg daily for 3 months.
Referrals:
Orly Hernandes PA-C [Specified Professional Personl] - 03/29/24 10:20 am (You have a cardiology follow-up appointment at the [place] office. Please call with questions)
Thompson Mendez MD [Family Provider] - in less than 1 week
Additional Discharge Medication Instructions: You are prescribed 3 months of colchicine 0.6mg daily
Take Motrin 800mg 3x/day x 2 weeks - take through 03/28/24
Take Protonix to help protect your stomach while you are on Motrin
You are newly started on Metoprolol to help control heart rates if you revert back to afib
You are prescribed vitamins thiamine/folate
Prescriptions:
New
thiamine HCl (vitamin B1) 100 mg Tablet
100 mg PO DAILY Qty: 30 0RF
folic acid 1 mg Tablet
1 mg PO DAILY Qty: 30 0RF
ibuprofen 800 mg Tablet
800 mg PO TID Qty: 42 0RF
pantoprazole 40 mg Tablet,Delayed Release (Dr/Ec)
40 mg PO DAILY Qty: 30 0RF
metoprolol succinate 25 mg Tablet Extended Release 24 Hr
25 mg PO DAILY Qty: 30 0RF
colchicine 0.6 mg Tablet
0.6 mg PO DAILY Qty: 90 0RF
Continued
albuterol sulfate 90 mcg/actuation Hfa Aerosol Inhaler
2 puff INHALATION R Q6HPRN PRN (Reason: sob)
biotin 1 mg Tablet
1 mg PO DAILY
Discontinued
ibuprofen 200 mg Tablet
600 mg PO Q6HPRN PRN (Reason: mild pain)
Discharge Orders:
Discharge Patient (As Directed); Ordered 03/16/24
Ordered By: Roxy Cho
Care Plan Goals
Care Plan Goals:
Problem: Readiness for enhanced knowledge related to diagnosis and treatment plan
Goal: Understand your diagnosis and treatment plan needs, including medications if applicable.
Instructions: Know your diagnosis, underlying causes and treatment plan options, including medications if applicable. Consult with your health care team to learn about your diagnosis and treatment plan, including medications if applicable.
Discharge Date and Time
Discharge Date/Time: 03/16/24 10:28
Print Language: LITHUANIAN
== END 2024-03-16 10:28 | disposition home or self-care (01) | DRG 315 ==
LOC: IVU 22:31
PROVIDERS: Clinical Nurse Specialist Family Health; Nurse Practitioner Family; ADMITTING PHYSICIAN Internal Medicine; ATTENDING PHYSICIAN Student in an Organized Health Care Education/Training Program; EMERGENCY PHYSICIAN Emergency Medicine; FAMILY PHYSICIAN Family Medicine; OTHER PHYSICIAN Internal Medicine Cardiovascular Disease
DX: I31.39 Other pericardial effusion (noninflammatory) (principal); E87.1 Hypo-osmolality and hyponatremia; J98.11 Atelectasis; J81.1 Chronic pulmonary edema; J44.9 Chronic obstructive pulmonary disease, unspecified; R16.1 Splenomegaly, not elsewhere classified; I77.810 Thoracic aortic ectasia; Z79.899 Other long term (current) drug therapy; Z88.0 Allergy status to penicillin; I48.0 Paroxysmal atrial fibrillation; Z11.52 Encounter for screening for COVID-19; Z90.49 Acquired absence of other specified parts of digestive tract; Z87.891 Personal history of nicotine dependence; Z82.49 Family history of ischemic heart disease and other diseases of the circulatory system; I49.3 Ventricular premature depolarization; F10.90 Alcohol use, unspecified, uncomplicated; D72.829 Elevated white blood cell count, unspecified; E87.8 Other disorders of electrolyte and fluid balance, not elsewhere classified
CPT/HCPCS: 71046; 71275; 80048; 80053; 80061; 83036; 83735; 83880; 83935; 84100; 84295; 84300; 84443; 84484; 85025; 85027; 85379; 85652; 85730; 86140; 87811; 93005; 93306; 96374; 99285; Q9967

== ENCOUNTER 2024-03-31 08:05 | Emergency (ER) | payer OTHER, SELFPAY ==
[2024-03-31] VITALS (20 sets, daily range): BP systolic 100–131; BP diastolic 58–103; BMI 22.0
[2024-03-31] MEDS: NSS 500 IV (08:37)
[2024-03-31 09:15] LABS: % Immature Granulocytes 0.9 % (0-0.5); % Lymphocytes 11.7 % (20.5-51.1); % Monocytes 13.3 % (1.7-9.3); % Neutrophils 70.1 % (42.2-75.2); Absolute Basophils 0.1 10^3/uL (0-0.2); Absolute Eosinophils 0.3 10^3/uL (0-0.7); Absolute Immature Granulocytes 0.1 10^3/uL (0-0.05); Absolute Lymphocytes 1.2 10^3/uL (1.2-3.4); Absolute Monocytes 1.4 10^3/uL (0.1-0.6); Absolute Neutrophils 7.4 10^3/uL (1.4-6.5); Hematocrit 39.9 % (39.0-52.0); Hemoglobin 13.5 g/dL (13.0-18.0); Mean Corp Hgb Conc. 33.8 g/dL (33.0-37.0); Mean Corpuscular Hgb 30.7 pg (27.0-31.0); Mean Corpuscular Volume 90.7 fL (80.0-94.0); Mean Platelet Volume 10.1 fL (7.4-10.4); Nucleated Red Blood Cells % 0 % (-); Platelet Count 432 10^3/uL (130-400); Red Cell Dist. Width 12.9 % (11.5-14.5); White Blood Cell Count 10.5 10^3/uL (4.8-10.8)
[2024-03-31 09:27] LABS: Blood Urea Nitrogen 15 mg/dl (9-20); Calcium 9.1 mg/dl (8.4-10.2); Carbon Dioxide 30 mmol/L (22-30); Chloride 95 mmol/L (98-107); Estimated Creatinine Clearance 93 ml/min; Glucose 165 mg/dl (70-99); Potassium 5.1 mmol/L (3.5-5.1); Sodium 131 mmol/L (135-145); eGFR > 60.00
--- NOTE | 2024-03-31 09:37 | ED.GENMED ---
History of Present Illness
General
Chief Complaint: Heart Rate Problem
Source: patient
Exam Limitations: none
Time Seen by Provider: 03/31/24 08:16
History of Present Illness
History of Present Illness:
Patient presents with rapid heartbeat. He does not feel this. He checked his blood pressure monitor yesterday afternoon and noted to be rapid. He rechecked it this morning and it would remain rapid. In addition this morning blood pressure was
low. He denies chest pain shortness of breath syncope or other complaints. Recent admission for pericarditis. He had a very brief episode of PAF in the hospital. This self resolved.
Past History
Past History
ED Past Medical History: Other (Pericarditis); Negative Asthma, HTN, Hypercholesterolemia or NIDDM
ED Past Surgical History: Appendectomy and Orthopedic (Right rotator cuff)
Social History
Tobacco: Former smoker
Alcohol: Daily (Beer 4-6 )
Personal:
Living: with family
Review of Systems
Review of Systems
All Other Systems: Not applicable
Respiratory: Reports no symptoms
Cardiac: Denies chest pain or syncope
ABD/GI: Reports no symptoms
Phy Exam
Physical Exam
Physical Exam:
GENERAL: Alert and oriented in no apparent distress
EYE: Orbits normal.
NECK: Supple, no thyroid palpable.
ENT: Pharynx without erythema
CARDIAC: Tachycardic and regular no murmur
LUNGS: Clear breath sounds,normal
ABDOMEN: Soft, without focal tenderness or distention
NEUROLOGICAL: Alert and oriented , grossly non-focal
SKIN: Warm and dry, no rash or lesion, no discoloration, skin intact.
MUSCULOSKELETAL: No edema,no deformity.Good color
PSYCH: Normal and appropriate interaction.
Course
Orders/Labs/Results
Orders:
Orders
03/31/24 08:07
EKG [Electrocardiogram (*1)] Urgent
Reason for Study: Palpitations
EKG- Treatment ONCE
03/31/24 08:27
IV Insert/Care/Rem.- Treatment PRN
0.9% Sodium Chloride 500 ml [Nss] 500 ml IV BOLUS
03/31/24 08:28
Cardiac Monitoring- Treatment ONCE
03/31/24 08:33
Basic Metabolic Panel Urgent
Complete Blood Count/With Diff Urgent
Magnesium Urgent
Comment: ADD ON
03/31/24 09:15
Metoprolol [Lopressor] 5 mg IV NOW STA
03/31/24 10:44
Propofol [Diprivan] 20 ml .ROUTE .STK-MED
03/31/24 10:58
Electrocardiogram (*1) Urgent
Reason for Study: Chest Pain
EKG- Treatment ONCE
03/31/24 11:11
Apixaban [Eliquis] 5 mg PO NOW STA
03/31/24 11:32
Add On- LAB Urgent
Tests Added?: magnesium
Abnormal Lab Results
03/31/24
08:33
RBC 4.40 L 10^6/uL
(4.70-6.10)
Plt Count 432 H 10^3/uL
(130-400)
Abs Immat Gran (auto) 0.1 H 10^3/uL
(0-0.05)
Absolute Neuts (auto) 7.4 H 10^3/uL
(1.4-6.5)
Absolute Monos (auto) 1.4 H 10^3/uL
(0.1-0.6)
Immature Gran % 0.9 H %
(0-0.5)
Lymphocytes % 11.7 L %
(20.5-51.1)
Monocytes % 13.3 H %
(1.7-9.3)
Sodium 131 L mmol/L
(135-145)
Chloride 95 L mmol/L
(98-107)
Glucose 165 H mg/dl
(70-99)
03/31/24 08:33
03/31/24 08:33
Vital Signs
Initial and Last Documented VS:
Initial Vital Signs
Pulse Resp BP Pulse Ox
90 16 104/73 96
03/31/24 08:12 03/31/24 08:12 03/31/24 08:12 03/31/24 08:12
Last Documented Vital Signs
Temp Pulse Resp BP Pulse Ox
98.9 F 85 23 131/79 97
03/31/24 14:20 03/31/24 14:15 03/31/24 14:15 03/31/24 14:02 03/31/24 14:15
Procedures
Cardioversion
Indication:: Afib (A flutter)
Synchronized?: Yes
Energy Used: Other (200/250)
Number of attempts: 3
Successful?: Yes
ASA Risk Score: Class II
Any reaction or bad outcome to prior sedation/anesthesia?: No history of a reaction
Sedation level to be attained: moderate
Chart and allergies reviewed: Yes
Patient reassessed prior to sedation: Yes
Time out completed at (validating right patient & procedure): 10:51
History of difficult intubation: No
Airway free of obstruction: Yes
Patient has a gag reflex: Yes
Patient is able to open mouth: Yes
Patient has no dentures: Yes
Patient has no loose teeth: Yes
Medication administered by Provider during Moderate Sedation: IV Propofol (mg)
Total dose administered: 80
Time drug administered: 10:52
Start Time: 10:51
Stop Time: 11:10
MDM/Problems Addressed
Differential Diagnosis Includes:
SVT versus a flutter. In my opinion this is more likely a flutter. EKG was sent to cardiology who agrees. Patient is clinically stable. Blood pressure initially slightly low although improved with fluids. Timing of this is very likely less than
48 hours. We know he had an EKG in the office done about 10:00 2 days ago that was normal. Patient states he checked his blood pressure that evening and yesterday morning and there was no rapid heart rate at that time. The first time the rapid
heart rate was yesterday afternoon. Given this data, cardioversion is a reasonable approach. This was reviewed with cardiology. Other option would be rate control and admission. Pluses and minuses of both were given to the patient and .
*Pulse Oximetry
Patient hypoxic: no
*EKG
Interpreted by ED Provider?: Yes
Interpretation: abnormal
Comparison EKG: changes noted
Rate: tachycardiac
Rhythm: atrial flutter
[place]: normal axis
Interval: normal interval
QRS Pattern: normal QRS
Ischemia: non-specific ST changes
*Rug Cleaner Interpretation
Rate: tachycardiac
Interpretation: abnormal
Heart Rate: 160
Rhythm: atrial flutter
*Critical Care Note
Total Time (30-74mins, 75-104mins- exclusive of procedures): 40
Data Reviewed
Review of Other/Old Records Reveals: Labs, Records, Testing and Discharge Summary
Update Note
Update Note:
Procedure/cardioversion. Initially cardioverted at 150. This did not touch the rhythm issue. Increased to 200. This converted him to a normal sinus rhythm but then digressed to an atrial fibrillation RVR. Patient was recardioverted at 250.
This converted to a normal rhythm. However within a minute or so digressed to atrial fibrillation RVR. At this point I had exited the room very quickly to text cardiology. Upon regoing back in the room he had self converted to normal sinus rhythm
with PACs. Given the multiple cardioversions and propensity to want to go back into a supraventricular rhythm feel observation is warranted. Discussed with cardiology and hospitalist. Patient has remained stable since then. Multiple rechecks of
the monitor.
Repeat EKG normal sinus rhythm at 95. PVCs. Nonspecific changes
1230... Has remained in normal sinus rhythm. Occasional PVCs. Clinically stable.
ED Attending Note
-
Portions of this chart may have been created with voice recognition software.� Occasional wrong word or��sound alike� substitutions may have occurred due to the inherent limitations of voice recognition software.
Discharge Plan
Departure
Patient Disposition: Home (Routine Discharge)
Date of Disposition: 03/31/24
Time of Disposition: 11:10
Patient with high blood pressure during this ER visit?: No
Discharge Problem:
Paroxysmal atrial flutter, History of pericarditis
Instructions: Atrial Fibrillation (DC), Managing increased bleeding risk, MODERATE SEDATION ADULT
Prescriptions:
New
amiodarone 200 mg tablet
200 mg PO DAILY Qty: 30 3RF
Rx Instructions:
FILL SECOND. Please take 400mg BID for 1 week then decrease to 200mg daily.
amiodarone 400 mg tablet
400 mg PO BID Qty: 14 0RF
Rx Instructions:
FILL FIRST. Please take 400mg BID for 1 week then decrease to 200mg daily.
Eliquis 5 mg tablet
5 mg PO BID Qty: 60 5RF
No Action
biotin 1 mg Tablet
1 mg PO DAILY
thiamine HCl (vitamin B1) 100 mg Tablet
100 mg PO DAILY Qty: 30 0RF
folic acid 1 mg Tablet
1 mg PO DAILY Qty: 30 0RF
pantoprazole 40 mg Tablet,Delayed Release (Dr/Ec)
40 mg PO DAILY Qty: 30 0RF
colchicine 0.6 mg Tablet
0.6 mg PO DAILY Qty: 90 0RF
Referrals:
Orly Hernandes PA-C [Specified Professional Personl] - 04/13/24 9:00 am (You have a cardiology follow up appointment at the [place] office. Please call with questions.)
Dyan Zambrano DO [Family Provider] -
Activity Restrictions/Additional Instructions:
Follow-up per cardiology
On the blood thinners, no pain medication or anti-inflammatories. Only Tylenol
Interventions
Interventions:
*Risk Screen - Suicide Last Done: 03/31/24 08:12
*General Assessment Last Done: 03/31/24 09:00
*Neglect/Abuse Screening Last Done: 03/31/24 08:12
*ED COVID-19 Vaccine History Last Done: 03/31/24 09:00
*Nursing Disposition Last Done: 03/31/24 14:29
ED- Cardiac Assessment Last Done: 03/31/24 09:00
ED- Pulmonary Assessment Last Done: 03/31/24 09:00
Discharge Date and Time
Discharge Date/Time: 03/31/24 14:30
Print Language: WOLOF
--- NOTE | 2024-03-31 11:53 | CON.CAR ---
Addendum entered and electronically signed by Troy Golden MD 03/31/24 17:22:
I saw and examined the patient.
The Collection Development Librarian's note was reviewed and I agree with the note.
Comment: Briefly, 63-year-old man with recent hospitalization for acute pericarditis identified as having paroxysmal atrial fibrillation at that time and now presents today with recurrent atrial fibrillation with rapid ventricular response
Attempted direct-current cardioversion today in the ER was unsuccessful but patient subsequently converted to sinus rhythm spontaneously
Blood pressure was marginal today which will make rate control using an AV minh jim challenging
Patient is agreeable to a short course of amiodarone to maintain sinus rhythm
Plan to have him follow-up in the outpatient office and can discuss ablation vs alternative anti-arrhythmic at that time
Recommend Eliquis for cardioembolic prophylaxis� although his CHADS2 VASc is 0 he will turn 64 in the next few months
Continue colchicine for treatment of pericarditis for total 3 months
Stable for discharge from my perspective, outpatient follow-up has been arranged
Original Note:
Consultation
Consultation Request
Date/Time Consultation Performed: 03/31/24
Requesting Provider: Dr. Sherman
Performing Provider: Parisa Oneill PA-C for Dr. Golden
Reason for Consultation: afib/aflutter
Medical History
-
Chief Complaint: elevated HR
History of Present Illness:
Patient is a 63-year-old male with recent admission to [facility] 03/14 - 03/16/2024 for acute pericarditis, paroxysmal atrial fibrillation in setting of recent URI. He was discharged on Motrin and colchicine. He states he has finished his
Motrin course. He has not had any recurrence of chest discomfort. He had approximately 1 hour of atrial fibrillation during his hospital stay, and is CHADS2 Vasc score of 0 so was not started on long-term anticoagulation. seen in cardiology
office 03/29/2024 and was in sinus rhythm. Complained of fogginess and fatigue and hypotension on Toprol and therefore was discontinued. He was placed on 5-day Bardy monitor to look for A-fib burden. He reports he has been feeling well, however then
yesterday afternoon noted pulse on his blood pressure cuff was reading high. He repeated it this morning and it continued to read high, and blood pressure was low. Therefore came into ER for evaluation. Denies shortness of breath, palpitations.
Upon arrival to ER was noted to be in atrial flutter with RVR. Cardioversion in ER was attempted x3, with last attempt converting patient for approximately 30 seconds however then reverted back to A-fib. Since the time of his cardioversion he has
reverted back to sinus rhythm. Cardiology consulted for evaluation
PMH:
PAF
Small pericardial effusion by chest CT, concern for acute pericarditis
PVCs
Hyponatremia
Recent URI
COPD by CXR
Daily alcohol use
History of right rotator cuff repair in 2020
History of appendectomy at age 5
FH of CAD (angina in father)
Past Medical History
Past Medical History: Other (in HPI)
Social History
Tobacco: Non-Smoker
Alcohol: Daily (4-6 beers)
Personal:
Living: With Family
Employment: Employed
Family History
Family History: CAD (in father)
Allergies / Home Medications
Allergy/AdvReac Type Severity Reaction Status Date / Time
Penicillins Allergy Unknown Verified 03/14/24 16:40
�Medication �Instructions �Recorded �Confirmed �Type
biotin 1 mg tablet 1 mg PO DAILY Supplement 03/14/24 03/31/24 History
colchicine 0.6 mg tablet 0.6 mg PO DAILY #90 tabs 03/15/24 03/31/24 Rx
folic acid 1 mg tablet 1 mg PO DAILY #30 tabs 03/15/24 03/31/24 Rx
pantoprazole 40 mg tablet,delayed 40 mg PO DAILY #30 tabs 03/15/24 03/31/24 Rx
release
thiamine HCl (vitamin B1) 100 mg 100 mg PO DAILY #30 tabs 03/15/24 03/31/24 Rx
tablet
Review of Systems
-
History Source: Patient
All other systems: Negative unless noted
Physical Exam
Vital Signs
Pulse Resp BP Pulse Ox
93 13 100/82 96
03/31/24 11:10 03/31/24 11:10 03/31/24 11:10 03/31/24 11:10
Lab Results
03/31/24 08:33
03/31/24 08:33
Physical Exam
General: No Apparent Distress and Comfortable
HEENT: Normocephalic, Anicteric and Moist Mucous Membranes
Respiratory: Clear and Non Labored Respirations
Cardiac: S1/S2 and Regular Rhythm
GI: Soft, Non Tender, Non Distended and Normal Bowel Sounds
Musculoskeletal: No Clubbing, No Cyanosis and No Edema
Skin: Warm and Dry
Neuro: AO x 3
Impression / Plan
-
Primary Order Entry Technician: Dr. Golden
Assessment:
Presentation with Atrial flutter with RVR, s/p attempted CV in ER, initially failed, then converted for several seconds then reverted to A-fib x 2, then spontaneously converted to sinus rhythm
Small pericardial effusion by chest CT, concern for acute pericarditis
PVCs
Hyponatremia
COPD by CXR
Daily alcohol use
History of right rotator cuff repair in 2020
History of appendectomy at age 5
FH of CAD (angina in father)
ECHO 03/15/24: EF 55 to 60%, no regional wall motion abnormalities noted, mildly dilated aortic root
Plan:
-Patient with recent admission for chest discomfort in setting of recent URI with evidence of trivial/small pericardial effusion, treated for acute pericarditis. Also had brief episode of atrial fibrillation, self-limited and therefore not started
on anticoagulation. seen in cardiology office 03/29/2024 and was in sinus rhythm. Complained of fogginess and fatigue and hypotension on Toprol and therefore was discontinued. He was placed on 5-day Bardy monitor to look for A-fib burden. Now
presents back to [facility] after noting elevated heart rates on blood pressure cuff at home since yesterday afternoon. On arrival noted to be in rapid a flutter. Underwent attempted cardioversion to sinus rhythm x 3 in ER, however
reverted back to atrial fibrillation. Then spontaneously converted to sinus rhythm post cardioversion and thus far is maintaining sinus rhythm.
-Continue treatment of pericarditis with colchicine. Completed Motrin course
-echo 03/15 with results as above
-Eliquis initiated in the ER
-Would recommend antiarrhythmic drug therapy, would favor amiodarone short-term. Would plan for 400 mg twice daily for 1-2 weeks then decrease to 200 mg daily.
-Discussed EP evaluation once completed colchicine therapy to discuss benefits of ablation as with both a flutter and A-fib.
-EtOH cessation. cause of atrial arrhythmias may be multifactorial
-will arrange OP cardiac follow up
-d/w ER physician
Data Reviewed
-
EKG: Tracing Personally Visualized and interpreted
Medical Tests (Nuc Med, Echo etc): Report Reviewed by me
Labs: Labs Reviewed by me
Old Records: Reviewed
[2024-03-31 12:05] LABS: Magnesium 2.1 mg/dl (1.6-2.3)
[2024-03-31] MEDS: ELIQUIS 5 MG PO (12:36)
== END 2024-03-31 14:30 | disposition home or self-care (01) ==
LOC: EMR 08:05
PROVIDERS: EMERGENCY PHYSICIAN Emergency Medicine; FAMILY PHYSICIAN Family Medicine; OTHER PHYSICIAN Internal Medicine Cardiovascular Disease
DX: I48.92 Unspecified atrial flutter (principal); I48.0 Paroxysmal atrial fibrillation; I31.39 Other pericardial effusion (noninflammatory); E87.1 Hypo-osmolality and hyponatremia; J44.9 Chronic obstructive pulmonary disease, unspecified; F10.90 Alcohol use, unspecified, uncomplicated; Z87.891 Personal history of nicotine dependence; Z90.49 Acquired absence of other specified parts of digestive tract
CPT/HCPCS: 99291; 96360; 92960; 80048; 83735; 85025; 93005

== ENCOUNTER → 2024-04-27 14:49 | Outpatient (REF) | payer OTHER, SELFPAY | LOC: RCS 14:49 | PROVIDERS: ATTENDING PHYSICIAN Physician Assistant Medical; FAMILY PHYSICIAN Family Medicine | DX: I48.3 Typical atrial flutter (principal); I30.1 Infective pericarditis; R94.31 Abnormal electrocardiogram [ECG] [EKG] | CPT/HCPCS: 93308; 93321; 93325 ==

== ENCOUNTER → 2024-06-07 14:59 | Outpatient (REF) | payer OTHER, SELFPAY | LOC: DHSLP 14:59 | PROVIDERS: ATTENDING PHYSICIAN Internal Medicine Cardiovascular Disease; FAMILY PHYSICIAN Family Medicine | DX: G47.33 Obstructive sleep apnea (adult) (pediatric) (principal); R06.83 Snoring; I48.91 Unspecified atrial fibrillation | CPT/HCPCS: 95800 ==

== ENCOUNTER 2024-07-15 05:55 | Day surgery (SDC) | payer OTHER, SELFPAY ==
[2024-07-04 09:13] VITALS: BMI 20.9
--- NOTE | 2024-07-04 09:21 | HPS.HSE ---
Family Physician
-
Family Physician: Fredrick Nash
Chief Complaint
-
Paroxysmal atrial fibrillation.
History of Present Illness
The patient is a 64 year old male presenting today for paroxysmal atrial fibrillation. The patient was first diagnosed with atrial fibrillation during a hospital admission for acute pericarditis, viral in origin, in February 2024. He is
taking daily Colchicine because of this. He does report a history of chest tightness and shortness of breath secondary to his arrhythmia. He previously underwent a failed cardioversion in the ED in March 2024. A recent event monitor demonstrated
a 2% atrial fibrillation burden and 30% atrial flutter burden. He is on current pharmacological therapy with Amiodarone. He does report compliance with Eliquis for oral anticoagulation. He is interested in pursuing with pulmonary vein isolation for
further arrhythmia and symptom management. He denies any current complaints today such as chest pain and shortness of breath at rest, palpitations, nausea, vomiting, diarrhea, lightheadedness, dizziness, cough, sore throat, or fever.
Medical History
Past Medical History
Past Medical History: Reports Other
Additional Past Medical History:
1. Paroxysmal atrial fibrillation and atrial flutter, status post cardioversion 03/2024; pharmacological therapy with Amiodarone and oral anticoagulation with Eliquis.
2. PVCs.
3. Acute viral pericarditis, diagnosed 02/2024; on Colchicine.
4. Chronic pericardial effusion.
5. Mild mitral regurgitation.
6. Mild tricuspid regurgitation.
7. Newly diagnosed obstructive sleep apnea, awaiting recommendations from Pulmonary.
8. COPD per previous chest x-ray.
9. GERD.
10. Diverticulosis.
11. Hemorrhoids.
12. Remote migraines.
13. Lumbar herniated disc.
14. History of hyponatremia.
15. Remote history of tobacco abuse.
16. Heavy alcohol use with mildly elevated transaminase.
Past Surgical History: Reports Other
Additional Past Surgical History:
1. Cardioversion.
2. Right rotator cuff repair.
3. Appendectomy.
4. Colonoscopy x2.
Social History
Tobacco: Former Smoker (He is a former 1 pack per day cigarette smoker who quit tobacco altogether in the . )
Alcohol: Other (He drinks 3-5 beers approximately 3-4 days a week. )
Personal:
Living: Other (He lives in a 3 story home with his . )
Family History
Family History: Not pertinent
Allergies / Home Medications
Allergy/Medication List:
Home medications:
1. Amiodarone 200 mg p.o. daily.
2. Apixaban 5 mg p.o. twice a day.
3. Biotin 1 mg p.o. daily.
4. Colchicine 0.6 mg p.o. daily.
5. Pantoprazole 40 mg p.o. daily.
Allergies: Penicillin (remote).
Review of Systems
-
A 12 point ROS was completed and negative except as noted: Yes
Physical Exam
Vital Signs
Blood pressure 145/91. Heart rate 70. Respirations 18. Pulse ox 98% on room air.
Height 6 feet, 3 inches. Weight 75.7 kg. BMI 20.9.
Physical Exam
General: Well Developed, Well Nourished and No Apparent Distress
HEENT: NormoCephalic, Moist mucous membranes, Atraumatic and PERRLA
Respiratory: Clear
Cardiac: Regular Rhythm
GI: Soft, Non Tender and Non Distended
Musculoskeletal: No Edema and Normal Gait & Station
Skin: Warm and Dry
Neuro: AO x 3 and Nonfocal/grossly intact
Laboratory Results
-
DIAGNOSTIC STUDIES as of 07/04/2024: White blood cell count 5.7. Hemoglobin 14.1. Platelet count 207,000. PT 12.2. INR 0.88. Sodium 140. Potassium 4.8. BUN 13. Creatinine 0.9. Glucose 109. Calcium 9.5. Magnesium 2.0. AST 65. ALT 47. Albumin 4.3.
Type and screen O positive.
EKG 07/04/2024: Normal sinus rhythm. Left axis deviation. Nonspecific T wave abnormality.
Chest CT 07/04/2024: Short segment common vestibule for the left superior and inferior pulmonary veins, fairly commonly seen and considered normal variant. No evidence for left atrial thrombus.
Echocardiogram 04/27/2024: Normal left ventricular size, wall thickness, and systolic function. No regional wall motion abnormalities are seen. LV ejection fraction is 55-60% by Lewis's method of disc. Normal diastolic function. Normal right
ventricular size and function. Mild mitral regurgitation. Trace tricuspid regurgitation. Estimated pulmonary artery pressure of 23 mmHg, assuming a right atrial pressure of 3 mmHg. Mild pulmonic regurgitation. Trivial pericardial effusion. Mildly
dilated Sinus of Valsalva, 3.8 cm. The aortic arch is normal in caliber. When compared to prior study on 03/15/2024, there is no significant change.
Impression/Plan
-
IMPRESSION/PLAN:
1. Paroxysmal atrial fibrillation: The patient is in need of pulmonary vein isolation with Dr. Charles Pacheco on 07/15/2024. The benefits and risks of pulmonary vein isolation have been explained to the patient. The patient understands these risks
and wishes to proceed. He will not be required to undergo a pre-procedural transesophageal echocardiogram as he has been compliant with his home oral anticoagulation. He is aware to continue his Eliquis up until the night prior to his procedure. He
will take no medications the morning of his procedure.
[2024-07-04 09:45] LABS: % Basophils 0.9 % (0-2); % Eosinophils 2.6 % (0-6); % Immature Granulocytes 0.5 % (0-0.5); % Monocytes 11.9 % (1.7-9.3); % Neutrophils 69.1 % (42.2-75.2); Absolute Basophils 0.1 10^3/uL (0-0.2); Absolute Eosinophils 0.2 10^3/uL (0-0.7); Absolute Lymphocytes 0.9 10^3/uL (1.2-3.4); Absolute Monocytes 0.7 10^3/uL (0.1-0.6); Hematocrit 41.2 % (39.0-52.0); Hemoglobin 14.1 g/dL (13.0-18.0); Mean Corp Hgb Conc. 34.2 g/dL (33.0-37.0); Mean Corpuscular Hgb 31.4 pg (27.0-31.0); Mean Corpuscular Volume 91.8 fL (80.0-94.0); Mean Platelet Volume 10.5 fL (7.4-10.4); Nucleated Red Blood Cells % 0 % (-); Platelet Count 207 10^3/uL (130-400); Red Blood Cell Count 4.49 10^6/uL (4.70-6.10); Red Cell Dist. Width 14.9 % (11.5-14.5); White Blood Cell Count 5.7 10^3/uL (4.8-10.8)
[2024-07-04 09:46] LABS: ALT (SGPT) 47 U/L (0-50); AST (SGOT) 65 U/L (17-59); Albumin 4.3 g/dl (3.5-5.0); Alkaline Phosphatase 79 U/L (38-126); Blood Urea Nitrogen 13 mg/dl (9-20); Calcium 9.5 mg/dl (8.4-10.2); Carbon Dioxide 32 mmol/L (22-30); Chloride 100 mmol/L (98-107); Estimated Creatinine Clearance 88 ml/min; Glucose 109 mg/dl (70-99); Potassium 4.8 mmol/L (3.5-5.1); Sodium 140 mmol/L (135-145); Total Bilirubin 1.3 mg/dl (0.2-1.3); eGFR > 60.00
[2024-07-04 09:48] LABS: INR 0.88; PT 12.2 Sec (11.4-14.6)
[2024-07-15] VITALS (13 sets, daily range): BP systolic 102–152; BP diastolic 61–79; BMI 21.0
--- NOTE | 2024-07-15 07:24 | ITS.CL.ABL ---
Mail Agent - Ablation
Ablation
Procedure Report:
Primary Hall Director: Dr Troy Golden
Procedure Date: 07/15/2024
Patient History:
Patient is a pleasant 64-year-old male with a past medical history significant for alcohol use, pericarditis, and symptomatic paroxysmal atrial arrhythmias (AF, AFL).
See H&P for complete details.
Indication:
Symptomatic paroxysmal atrial fibrillation
Symptomatic paroxysmal atrial flutter noted on event monitor
Arrhythmia Specific History:
Prior Medical Therapies for Rate and Rhythm Control:
[ ] Beta-jim
[ ] Calcium channel-jim
X Amiodarone
[ ] Dronederone
[ ] Sotalol
[ ] Flecainide
[ ] Dofetilide
[ ] Options limited by bradycardia
[ ] Options limited by comorbid renal disease
Prior Procedural Therapies for AF/AFL:
X Cardioversion - unsuccessful 03/2024
[ ] Pulmonary Vein Isolation
[ ] Posterior Wall Isolation
[ ] Additional lines (Specify)
[ ] Surgical Penaloza-MAZE or PVI (Specify)
Procedure Performed:
X AF ablation procedure (00255) -- includes LA/CS pacing, trans-septal, 3D mapping, + ICE
[ ] +IV drug (39692)
[ ] +Other Arrhythmia (05839)
[ ] +Other AF Line/ablation (27649)
Risks and expected recovery has been explained in detail. Alternative options have been explored, and in a shared-decision making fashion we have decided that this was the most appropriate procedure.
Method
NPO status confirmed. Grounding pad applied. Defibrillator pads applied. Continuous surface ECG, pulse oximetry, and blood pressure were monitored. Procedure was performed under general anesthesia, with anesthesia services.
Both groins were clipped, prepped with Chloraprep, and draped in sterile fashion. Time out was called. Local anesthesia administered with bupivacaine. The right [and left femoral vein were]femoral vein was accessed for catheter placement, using
ultrasound guidance (images saved to record), micro-puncture needle/wire, and modified seldinger technique. [ ] sheaths were placed. The following catheters were used:
[ ] Tacticath SE (D/F Curve) ablation catheter
[ ] Viewflex 9Fr ICE catheter
[ ] Inquiry decapolar 6Fr diagnostic catheter
[ ] CRD Hex 6Fr
[ ] Arctic Front Advance Cryoballoon ([ ]28mm[ ]23mm)
[ ] Achieve Advance mapping catheter ([ ]15mm[ ]20mm)
[ ] FlexCath Contour 10 Fr with PulseSelect PFA Catheter
X Agilis 11.5 Fr Steerable Sheath
X Sphere-9 Ablation catheter
[ ] Advisor HD Grid Mapping Catheter, SE
[ ] Acuson AcuNav 8 Fr ICE catheter
[ ]Other: [ ]
Intracardiac ultrasound (ICE) was carefully advanced into the right atrium to guide sheath placement over a J-wire, catheter placement, guide trans-septal puncture, identify potential complications, identify anatomic structures and ensure proper
contact between ablation catheter and tissue.
Heparin was given prior to trans-septal puncture. Heparin was given to achieve and maintain a target ACT of 300-400 seconds throughout the procedure.
Trans-septal access was performed under ICE guidance. The trans-septal puncture was performed with a SafeSept wire through a Brockenbrough needle assembly through the steerable sheath. The wire was visualized as it entered the LSPV and system
advanced under ICE guidance and fluoroscopy into the LA. The Brockenbrough needle assembly, SafeSept wire and sheath dilator were removed under negative pressure. LA pressure was measured and recorded.
ICE and 3D mapping was performed to identify relevant cardiac structures. A careful 3D map was created to assess for regions of low-voltage and abnormal electrogram signals using Sphere-9 catheter. Additional mapping was performed as outlined below.
Prior to ablation, glycopyrrolate was provided. Sphere 9 catheter was advanced into the left atrium. Electroanatomic mapping was performed using the Sphere 9 catheter. Pulmonary vein isolation was performed using pulsed field ablation in a
circumferential manner. Contact was visualized via EAM, ICE, fluoroscopy, and EGM signals. Following completion of ablation lesions, a post-ablation voltage/activation map was performed in sinus rhythm. Entrance and exit block were confirmed for
each vein.
Catheter and sheath were removed from the left atrium and post-ablation intracardiac echo evaluation was consistent with pre-ablation with no changes and no pericardial effusion and there is no left atrial thrombus or left ventricle thrombus seen.
Electrophysiology study was performed. No arrhythmias were induced. Atrial flutter was not induced with extrastimuli protocol. Hemostasis was obtained with figure of 8 stitch for each groin and with manual pressure. Protamine was used for
reversal.
Estimated Blood Loss
5 mL
Complications
None
Fluoroscopy: 2.6 minutes; 5.76 mGy; DAP 0.673
LA Pressure: Pre 2 mmHg, post 3 mmHg
Baseline Intervals:
Rhythm: SR
OK: 159 ms
QRS: 86 ms
QT: 377 ms
QTc: 447 ms
A-A: 710 ms
R-R: 710 ms
Post-Procedure Intervals:
OK: 154 ms
QRS: 90 ms
QT: 411 ms
QTc: 454 ms
A-A: 821 ms
R-R: 821 ms
AVWB: 330 ms
AERP: 600/230 ms
Recommendations
- Bedrest with straight-leg precautions as ordered
- Anticipate same day discharge if patient meeting clinical metrics
- Resume home medications as indicated
- Ok to resume anticoagulation tonight if patient and groin sites stable
- PPI daily for 30 days
- Decrease amiodarone to 100 mg daily, plan to discontinue at/after 3 mo natividad
- Plan for follow-up in office as scheduled
Charles Pacheco DO, FACC, [facility]
Clinical Cardiac Wheel And Pinion Inspector
cc: Dr Fredrick Nash; Dr Troy Golden
[2024-07-15 08:51] LABS: ACT-LR - POC 310 Seconds (116-155)
[2024-07-15 09:08] LABS: ACT-LR - POC 305 Seconds (116-155)
[2024-07-15 09:27] LABS: ACT-LR - POC 129 Seconds (116-155)
[2024-07-15 10:25] LABS: ACT-LR - POC > 397 Seconds (116-155)
[2024-07-15] MEDS: ANESTHETIC LOZENGE 1 LOZENGE PO (10:48)
--- NOTE | 2024-07-15 15:18 | W.PN.UPDATE ---
Update Note
Progress Note Update
Pt seen post PFA. Right groin site without ht, small ooze post suture removal, managed with manual compression. Site now stable without ht/bleeding, non tender. OOB ambulating, urinating without difficulty. Post EKG NSR w/LVH, 70s, no acute
changes. Resume eliquis tonight at usual time, will decrease amiodarone to 100mg daily. Followup with Dr. Adames as scheduled. Home today if groin site/tele remain stable.
== END 2024-07-15 15:00 | disposition home or self-care (01) ==
LOC: CATH 05:55
PROVIDERS: ATTENDING PHYSICIAN Internal Medicine Cardiovascular Disease; FAMILY PHYSICIAN Family Medicine; OTHER PHYSICIAN Internal Medicine Cardiovascular Disease
DX: I48.0 Paroxysmal atrial fibrillation (principal); I08.1 Rheumatic disorders of both mitral and tricuspid valves; I49.3 Ventricular premature depolarization; G47.33 Obstructive sleep apnea (adult) (pediatric); J44.9 Chronic obstructive pulmonary disease, unspecified; K21.9 Gastro-esophageal reflux disease without esophagitis; K22.70 Barrett's esophagus without dysplasia; K57.90 Diverticulosis of intestine, part unspecified, without perforation or abscess without bleeding; K64.9 Unspecified hemorrhoids; G43.909 Migraine, unspecified, not intractable, without status migrainosus; Z87.891 Personal history of nicotine dependence; R74.01 Elevation of levels of liver transaminase levels; Z79.899 Other long term (current) drug therapy; Z79.01 Long term (current) use of anticoagulants; Z88.0 Allergy status to penicillin; Z87.19 Personal history of other diseases of the digestive system; Z90.49 Acquired absence of other specified parts of digestive tract; I48.92 Unspecified atrial flutter
CPT/HCPCS: C1894; C1730; C1733; C1766; 36415; 75572; 80053; 83735; 85025; 85347; 85610; 86850; 86900; 86901; 93005; 93656; Q9967